=== PATIENT | male | born 1950 | race Caucasian/White ===

== ENCOUNTER → 2017-01-31 | Outpatient (CLI) | payer BC ==
[~2017-01-31] VITALS: Ht 182.9 cm; Wt 78.5 kg
[~2017-01-31] MED LIST: MOBIC15 MG PO; MULTI VITAMIN1 EACH PO; PRAVACHOL40 MG PO; QUALAQUIN324 MG PO
--- NOTE | ~2017-01-31 | HPC ---
[facility] [place] [address] PAIN MANAGEMENT CONSULTATION Name: SHAQUILLE HE Room #: [facility].#: [id number] Admission: 01/31/17 Attend Phys: Stanley Graves DO Discharge: Date of : 52 Report #: [id number] THIS REPORT FOR: //name// CC: Jose Juan Graves The patient is a 66-year-old gentleman, prior seen in consultation 01/13/2017. We talked about proceeding with epidural injection, we started the patient conservatively on Meloxicam 15 mg a day. He returns to pain clinic today noting that while the Meloxicam is helpful, radicular pains continued, he rates his pain a 6-7 on a 0-10 visual analog scale. PHYSICAL EXAMINATION: Unchanged from presentation 01/13/2017. ASSESSMENT: Symptomatic lumbar radiculopathy. After discussion, we have elected to proceed with epidural injection under fluoroscopy today. Follow up in 3 weeks for reevaluation. PROCEDURE: Lumbar epidural injection under fluoroscopy. PROCEDURE NOTE: After both written and informed consent to include risk of spinal cord damage, increased pain, weakness and dural puncture, the patient was taken to the fluoroscopy suite, placed in the prone position. After sterile prep and drape, a skin wheal with lidocaine was raised. A 22-gauge epidural Tuohy needle was inserted in the midline at L4-L5 with good loss to resistance. Negative aspiration for cerebrospinal fluid or blood was noted. Then 1 mL of Omnipaque under biplanar fluoroscopy showed good spread within the epidural space. This was followed with 80 mg of triamcinolone plus 1 mL of 1.5% preservative-free Xylocaine, 0.5 mL Xylocaine was then injected to flush the needle; it was removed. The patient was monitored for an appropriate period of time and discharged in good and stable condition. <ELECTRONICALLY SIGNED> By: Stanley Graves DO 02/03/17 [id number] Stanley Graves DO /nt
[2017-01-31 09:56] VITALS: BP 167/112
== END | disposition home or self-care (01) ==
LOC: PAIN 07:21
DX: M54.16 Radiculopathy, lumbar region (principal)

== ENCOUNTER → 2021-11-09 | Outpatient (CLI) | payer OTHER | LOC: SJCVC 11:36 | PROVIDERS: ATTEND Internal Medicine Cardiovascular Disease | DX: R06.00 Dyspnea, unspecified (principal); R01.1 Cardiac murmur, unspecified; E78.5 Hyperlipidemia, unspecified; G25.81 Restless legs syndrome; E78.00 Pure hypercholesterolemia, unspecified; Z79.899 Other long term (current) drug therapy; Z72.89 Other problems related to lifestyle ==

== ENCOUNTER → 2021-12-20 | Outpatient (CLI) | payer OTHER | LOC: SJCVCIMAG 07:56 | PROVIDERS: ATTEND Internal Medicine Cardiovascular Disease | DX: I35.8 Other nonrheumatic aortic valve disorders (principal); R01.1 Cardiac murmur, unspecified; R06.00 Dyspnea, unspecified; E78.00 Pure hypercholesterolemia, unspecified; N40.0 Benign prostatic hyperplasia without lower urinary tract symptoms; E78.5 Hyperlipidemia, unspecified; G25.81 Restless legs syndrome; Z79.899 Other long term (current) drug therapy; Z72.89 Other problems related to lifestyle ==